=== PATIENT | female | born 1970 | race Hispanic/Latino ===

== ENCOUNTER 2017-01-14 08:58 | Emergency (ER) | payer BC ==
[2017-01-14 09:03] VITALS: O2SAT 100; BMI 23.0
--- NOTE | 2017-01-14 09:22 | ED PDOC ---
HPI: Back Time Seen by Provider: 01/14/17 09:14 Chief Complaint (Nursing): Upper Extremity Problem/Injury Chief Complaint (Provider): Upper Extremity Problem/Injury History Per: Patient History/Exam Limitations: no limitations Onset/Duration Of Symptoms: Days Current Symptoms Are (Timing): Still Present Quality Of Discomfort: "Pain" Severity: Moderate Previous Symptoms: None Associated Symptoms: None Additional Complaint(s): Patient is a 46 year old female who presents to ED for evaluation of right sided neck pain with radiation into shoulder for 1 week. Patient states pain started as mild and intermittent but has recently worsened. States she was applying heating pads with no relief. Evaluated by PMD yesterday, injection of steroids administered but still no relief. Denies injury, weakness, numbness or headache. PMD: [facility] Past Medical History Reviewed: Historical Data, Nursing Documentation, Vital Signs Vital Signs: Last Vital Signs Temp 97.4 F L 01/14/17 09:02 Pulse 80 01/14/17 09:02 Resp BP 129/77 01/14/17 09:02 Pulse Ox 100 01/14/17 09:02 - Medical History PMH: Arthritis, Back Problems (herniated disc) Denies: COPD (undiagnosed) - Surgical History Surgical History: Cholecystectomy, (x 2) - Family History Family History: States: Unknown Family Hx - Living Arrangements Living Arrangements: With Family - Home Medications Home Medications: Ambulatory Orders Medication Instructions Recorded Azithromycin [Zithromax Z-José] 250 mg PO DAILY 5 Days 09/12/15 Naproxen [Naprosyn Tab] 1 tab PO Q8 PRN #21 tab 09/17/16 oxyCODONE/Acetaminophen [Percocet 1 ea PO Q6 PRN #6 tab 09/17/16 5/325 mg Tab] Cyclobenzaprine [Cyclobenzaprine 10 mg PO TID PRN #15 tab 01/14/17 HCl] Naproxen [Naprosyn] 500 mg PO BID PRN #15 tablet 01/14/17 - Allergies Allergies/Adverse Reactions: Allergies Allergy/AdvReac Type Severity Reaction Status Date / Time moxifloxacin Allergy RASH Verified 09/17/16 13:45 Review of Systems ROS Statement: Except As Marked, All Systems Reviewed And Found Negative Constitutional: Negative for: Fever Cardiovascular: Negative for: Chest Pain Respiratory: Negative for: Shortness of Breath Gastrointestinal: Negative for: Nausea, Vomiting Musculoskeletal: Positive for: Neck Pain, Shoulder Pain. Negative for: Back Pain Skin: Negative for: Rash Neurological: Negative for: Weakness, Numbness, Headache Physical Exam - Reviewed Nursing Documentation Reviewed: Yes Vital Signs Reviewed: Yes - Physical Exam Appears: Positive for: Non-toxic, Uncomfortable Skin: Positive for: Normal Color, Warm Eye Exam: Positive for: Normal appearance Neck: Positive for: Normal ((+) tenderness at level C7 with decreased ROM secondary to pain ), Supple, Decreased ROM Back: Positive for: Normal Inspection. Negative for: Vertebral Tenderness, Decreased ROM Extremity: Positive for: Normal ROM, Other (Decreased ROM of right shoulder secondary to pain, cns strength equal 5/5) Neurologic/Psych: Positive for: Alert, Oriented. Negative for: Motor/Sensory Deficits - ECG O2 Sat by Pulse Oximetry: 100 (RA) Pulse Ox Interpretation: Normal - CT Scan/US CT neck Other Rad Studies (CT/US): Radiology Report Reviewed (No fracture/ dislocation. Degenerative disc disease C5-6. Mild disc bulge C4-5 and C5-6. No spinal or foraminal stenosis.) Medical Decision Making Medical Decision Making: Time: 919 Initial impression: Neck pain Initial plan: -- CT-cervical -- Urine -- Flexeril and Toradol IM Scribe Attestation: Documented by Rachel Jaimes acting as a scribe for Ju Mckeon MD. Scribe Attestation: All medical record entries made by the Scribe were at my direction and personally dictated by me. I have reviewed the chart and agree that the record accurately reflects my personal performance of the history, physical exam, medical decision making, and the department course for this patient. I have also personally directed, reviewed, and agree with the discharge instructions and disposition. Disposition - Clinical Impression Clinical Impression: Bulging of cervical intervertebral disc, Cervical radiculopathy, acute - Disposition Disposition: Routine/Home Disposition Time: 12:21 Condition: IMPROVED Additional Instructions: FOLLOW-UP WITH CAM WITHIN 2 DAYS FOR REEVALUATION. Prescriptions: Cyclobenzaprine [Cyclobenzaprine HCl] 10 mg PO TID PRN #15 tab PRN Reason: Pain Naproxen [Naprosyn] 500 mg PO BID PRN #15 tablet PRN Reason: Pain, Moderate (4-7) Instructions: Cervical Radiculopathy (ED)
--- NOTE | 2017-01-14 12:03 | CT ---
PROCEDURE: CT Cervical Spine without contrast HISTORY: <Midline neck pain> COMPARISON: None available. TECHNIQUE: Axial computed tomography images were obtained of the cervical spine without the use of intravenous contrast. Coronal and sagittal reformatted images were created and reviewed. Radiation dose: Total exam DLP = 263.88 mGy-cm. This CT exam was performed using one or more of the following dose reduction techniques: Automated exposure control, adjustment of the mA and/or kV according to patient size, and/or use of iterative reconstruction technique. FINDINGS: VERTEBRAE: The vertebral bodies are maintained height. The transverse processes and posterior elements are intact. Normal vertebral alignment is maintained. The atlantoaxial articulation and odontoid process are intact. DISCS/SPINAL CANAL/NEURAL FORAMINA: There is mild narrowing of the C 5-6 intervertebral disc space consistent with degenerative disc disease. There is minimal disc bulge at C4-5 and C5-6. There is no evidence of focal disc herniation. There is no spinal stenosis or neural foraminal stenosis appreciated. Discs heights are grossly preserved. PARASPINAL SOFT TISSUES: Unremarkable. OTHER FINDINGS: None. IMPRESSION: No fracture/ dislocation. Degenerative disc disease C5-6. Mild disc bulge C4-5 and C5-6. No spinal or foraminal stenosis.
[2017-01-14] MEDS ORDERED: Oxycodone/Acetaminophen 5/325 mg Tab ONE (12:31)
[2017-01-14] MEDS ORDERED: Oxycodone/Acetaminophen 5/325 mg Tab PO STA (12:36)
[2017-01-14 13:41] VITALS: BP 130/71; PULSE 76; RESP 16; TEMP 97.1
== END 2017-01-14 13:41 | disposition home or self-care (01) ==
LOC: H.ER 08:58
DX: M54.12 Radiculopathy, cervical region (principal)
CPT/HCPCS: 72125; 81025; 96372; 99283; J1885

== ENCOUNTER 2018-01-13 15:22 | Emergency (ER) | payer BC, OTHER ==
[2018-01-13 15:22] VITALS: BMI 23.0
[2018-01-13 15:35] VITALS: BP 123/83; PULSE 95; RESP 18; TEMP 97.8; O2SAT 99
--- NOTE | 2018-01-13 15:46 | ED PDOC ---
HPI: General Adult Time Seen by Provider: 01/13/18 15:34 Chief Complaint (Nursing): Back Pain Chief Complaint (Provider): Neck pain History Per: Patient History/Exam Limitations: no limitations Onset/Duration Of Symptoms: Days Current Symptoms Are (Timing): Still Present Additional Complaint(s): 47 year old female presents to the emergency department with a complaint of an atraumatic neck pain since this morning, 01/13/2018. Reports she has a history of a "pinch nerve" and recieved injections in the neck July 2017 with minimal relief of pain. States pain radiates to the right shoulder and took Flexeril 10 mg for pain around 1245 pm today. Denies chest pain, fever, weakness , or trauma. Past Medical History Reviewed: Historical Data, Nursing Documentation, Vital Signs Vital Signs: Last Vital Signs Temp 97.8 F 01/13/18 15:33 Pulse 95 H 01/13/18 15:33 Resp 18 01/13/18 15:33 BP 123/83 01/13/18 15:33 Pulse Ox 99 01/13/18 16:42 - Medical History PMH: Arthritis, Back Problems (herniated disc) Denies: COPD (undiagnosed) - Surgical History Surgical History: Cholecystectomy, (x 2) - Family History Family History: States: Unknown Family Hx - Social History Current smoker - smoking cessation education provided: No Alcohol: None Drugs: Denies - Home Medications Home Medications: Ambulatory Orders Medication Instructions Recorded Azithromycin [Zithromax Z-José] 250 mg PO DAILY 5 Days tab 09/12/15 Naproxen [Naprosyn Tab] 1 tab PO Q8 PRN #21 tab 09/17/16 oxyCODONE/Acetaminophen [Percocet 1 ea PO Q6 PRN #6 tab 09/17/16 5/325 mg Tab] Cyclobenzaprine [Cyclobenzaprine 10 mg PO TID PRN #15 tab 01/14/17 HCl] Naproxen [Naprosyn] 500 mg PO BID PRN #15 tablet 01/14/17 Meloxicam [Mobic] 1 - 2 tab PO DAILY PRN #30 tab 01/13/18 Methocarbamol [Robaxin] 500 mg PO TID PRN #30 tablet 01/13/18 - Allergies Allergies/Adverse Reactions: Allergies Allergy/AdvReac Type Severity Reaction Status Date / Time moxifloxacin Allergy RASH Verified 01/13/18 15:33 Review of Systems ROS Statement: Except As Marked, All Systems Reviewed And Found Negative (As per HPI, otherwise negative) Constitutional: Negative for: Fever, Weakness, Other (Trauma) Cardiovascular: Negative for: Chest Pain Musculoskeletal: Positive for: Neck Pain, Shoulder Pain (Right) Physical Exam - Reviewed Nursing Documentation Reviewed: Yes Vital Signs Reviewed: Yes - Physical Exam Appears: Positive for: In Acute Distress (Moderate) Head Exam: Positive for: NORMAL INSPECTION Skin: Positive for: Normal Color, Warm, Dry ENT: Positive for: Normal ENT Inspection, Pharynx Is (Clear). Negative for: Pharyngeal Erythema, Tonsillar Exudate, Tonsillar Swelling Neck: Positive for: Pain On Movement Of Neck (Right sided paracervical muscle tenderness). Negative for: Normal Extremity: Positive for: Normal ROM, Other (Equal senior solutions engineer strength bilaterally). Negative for: Pedal Edema Neurologic/Psych: Positive for: Alert, Oriented (x3) - ECG O2 Sat by Pulse Oximetry: 99 (RA) Pulse Ox Interpretation: Normal Medical Decision Making Medical Decision Making: Time: 1543 Initial Impression: Initial Plan: Valium 10 mg PO Toradol 30 mg IM Lidocaine 5% 1 ea TD On re-evaluation, pt. reports moderate analgesia but pain is still present. Scribe Attestation: Documented by Ally Mccallum, acting as a scribe for Humza Moe PA-C. Provider Scribe Attestation: All medical record entries made by the Scribe were at my direction and personally dictated by me. I have reviewed the chart and agree that the record accurately reflects my personal performance of the history, physical exam, medical decision making, and the department course for this patient. I have also personally directed, reviewed, and agree with the discharge instructions and disposition. Disposition - Clinical Impression Clinical Impression: Chronic neck pain - Patient ED Disposition Is Patient to be Admitted: No - Disposition Referrals: [facility] [Outside] [facility] [Outside] Disposition: Routine/Home Disposition Time: 17:15 Condition: STABLE Additional Instructions: Follow up with [facility] for further evaluation. Return to ED immediately if symptoms worsen. Prescriptions: Meloxicam [Mobic] 1 - 2 tab PO DAILY PRN #30 tab PRN Reason: Pain Methocarbamol [Robaxin] 500 mg PO TID PRN #30 tablet PRN Reason: Muscle Spasm Instructions: Chronic Neck Pain (DC) Forms: [employer] (Icelandic) Print Language: TAMAZIGHT
[2018-01-13] MEDS ORDERED: Lidocaine 5% Patch TD STA (15:47)
[2018-01-13] MEDS ORDERED: Lidocaine 5% Patch TD ONE (16:27)
== END 2018-01-13 18:42 | disposition home or self-care (01) ==
LOC: H.ER 15:22
DX: M54.2 Cervicalgia (principal); G89.29 Other chronic pain
CPT/HCPCS: 96372; 99283; J1885